=== PATIENT | female | born 1965 | race African-American/Black ===

== ENCOUNTER 2022-02-04 10:43 | Observation (INO) ==
[2022-02-04 11:21] LABS: Basophils % 0.8 % (0.0-0.8); Eosinophils # 0.2 10*3/uL (0.0-0.87); Eosinophils % 3.3 % (0.00-10.9); Hematocrit 38.9 VOL% (35.7-47.0); Hemoglobin 13.1 GM/DL (12.0-16.0); Immature Granulocytes % 0.4 %; Immature Granulocytes Absolute 0.02 #; Lymphocytes # 0.6 10*3/uL (1.4-4.0); Mean Corpuscular HGB Conc 33.7 GM/DL (32-36); Mean Corpuscular Volume 76.4 FL (87-102); Mean Platelet Volume 12.6 FL (9.6-12.0); Monocytes % 6.3 % (1.7-12.7); Neutrophils % 77.2 % (38.7-73.9); Platelet Count 187 T/CUMM (130-400); Red Blood Count 5.09 MC/CUMM (3.8-5.5); Red Cell Distribution Width 13.5 % (9.3-17.3); White Blood Count 4.9 T/CUMM (4-12)
[2022-02-04 11:39] LABS: Albumin 3.4 G/DL (3.4-5.0); Bilirubin,Total 1.1 MG/DL (0.20-1.00); Calcium 8.7 MG/DL (8.5-10.1); Osmolality,Calculated 280.8 MOS/KG (273-304); Potassium 4.3 MMOL/L (3.5-5.1); Total Protein 7.2 G/DL (6.4-8.2)
[2022-02-04] MEDS ORDERED: NITROGLYCERIN SL 0.4 MG TABLET SL PRN (11:45)
[2022-02-04] MEDS ORDERED: ASPIRIN 325 MG TABLET PO STA (11:45)
[2022-02-04] MEDS ORDERED: ENOXAPARIN 30 MG/0.3 ML SYRINGE SUBCUT STA (11:49)
[2022-02-04] MEDS ORDERED: hydrALAZINE 20 MG/1 ML VIAL IV STA (12:12)
[2022-02-04] MEDS ORDERED: MORPHINE 2 MG/1 ML SYRINGE IV PRN (12:13)
[2022-02-04] MEDS ORDERED: GLUCAGON 1 MG VIAL IM PRN (12:13)
[2022-02-04] MEDS ORDERED: ONDANSETRON 4 MG/2 ML VIAL IV PRN (12:13)
[2022-02-04] MEDS ORDERED: DEXTROSE 10% 250 ML BAG IV PRN (12:13)
[2022-02-04] MEDS ORDERED: ENOXAPARIN 120 MG/0.8 ML SYRINGE SUBCUT ONE (12:28)
[2022-02-04] MEDS ORDERED: hydrALAZINE 20 MG/1 ML VIAL IV PRN (12:37)
[2022-02-04] MEDS ORDERED: METOPROLOL TARTRATE 5 MG/5 ML VIAL IV STA (13:48)
[2022-02-04] MEDS ORDERED: NITROGLYCERIN 2% OINT 1 INCH/GM PACK TOP STA (13:50)
[2022-02-04] MEDS: lisinopriL 10 MG TABLET PO SCH (14:03)
[2022-02-04 14:38] LABS: Hepatitis B Core IgM Quant 0.15 Index; Hepatitis B Surface Ag Quant 0.16 Index; Hepatitis B Surface Ag Result Non-Reactive (NonReactive); Hepatitis C Virus Ab Quant 0.08 Index; Hepatitis C Virus Ab Result Non-Reactive (NonReactive)
[2022-02-04 14:42] LABS: PT Patient Result 10.8 SECS (10.5-12.0)
[2022-02-04 14:43] LABS: Bacteria,Urine Occasional /HPF (Few); Mucus,Urine Occasional /LPF (Occasional); RBC,Urine <1 /HPF (0-4); Squamous Epithelial Cell,Urine Occasional /HPF (0-10)
[2022-02-04 14:45] LABS: Glucose,Urine (UA) 250 mg/dL (Negative); Protein,Urine Negative (Negative); Urine Appearance Clear (Clear); Urine Color Light Yellow (Yellow); Urine Specific Gravity >= 1.030 (1.001-1.035)
[2022-02-04 14:46] LABS: Bilirubin,Urine Negative (Negative); Blood, Urine Negative (Negative); Ketones,Urine Negative (Negative); Nitrite,Urine Negative (Negative); Urine Urobilinogen < 2.0 eU/dL (<2.0)
[2022-02-04 14:57] LABS: CKMB % 7.1 %
[2022-02-04 15:00] LABS: Barbiturates Screen,Urine Negative (Negative); Benzodiazepines Screen,Urine Negative (Negative); Cannabinoid Screen,Urine Negative (Negative); Opiate Screen,Urine Negative (Negative); Phencyclidine Screen,Urine Negative (Negative)
[2022-02-04] MEDS ORDERED: MORPHINE 4 MG/1 ML VIAL ONE (15:42)
[2022-02-04] MEDS ORDERED: POTASSIUM CHLORIDE RIDER 10 MEQ/100 ML PREMIX IV PRN (17:04)
[2022-02-04] MEDS ORDERED: DIAZEPAM 5 MG TABLET PO ONE (17:04)
[2022-02-04] MEDS ORDERED: MAGNESIUM SULF RIDER 2 GM/50 ML PREMIX IV PRN (17:04)
[2022-02-04] MEDS: SODIUM CHLORIDE 0.9% 1,000 ML IV SCH (17:49)
[2022-02-04] MEDS: INSULIN REGULAR 100 UNIT/ML SUBCUT SCH (17:56)
[2022-02-04] MEDS ORDERED: diphenhydrAMINE CAP 25 MG CAPSULE PO ONE (18:00)
[2022-02-04] MEDS ORDERED: LIDOCAINE 1% 20 ML VIAL ONE (18:32)
[2022-02-04] MEDS ORDERED: VERAPAMIL 5 MG/2 ML VIAL ONE (18:32)
[2022-02-04] MEDS ORDERED: fentaNYL 100 MCG/2 ML VIAL ONE (18:32)
[2022-02-04] MEDS ORDERED: MIDAZOLAM 2 MG/2 ML VIAL ONE (18:32)
[2022-02-04] MEDS ORDERED: NITROGLYCERIN DRIP 50 MG/250 ML BOTTLE IV ONE (18:32)
[2022-02-04] MEDS: carvediloL 6.25 MG TABLET PO SCH (20:53)
[2022-02-04] MEDS ORDERED: carvediloL 3.125 MG TABLET PO SCH ×3 (21:00)
[2022-02-04] MEDS ORDERED: ROSUVASTATIN 20 MG TABLET PO SCH (21:00)
[2022-02-04] MEDS ORDERED: cloNIDine 0.1 MG TABLET PO SCH (21:00)
[2022-02-04] MEDS ORDERED: ACETAMINOPHEN 325 MG TABLET PO PRN (21:06)
[2022-02-05] MEDS: INSULIN REGULAR 100 UNIT/ML SUBCUT SCH ×2 (00:16→08:53)
[2022-02-05] MEDS: SODIUM CHLORIDE 0.9% 1,000 ML IV SCH ×2 (02:00→10:39)
[2022-02-05 05:17] LABS: Calcium 8.5 MG/DL (8.5-10.1); Osmolality,Calculated 278.7 MOS/KG (273-304); Potassium 3.8 MMOL/L (3.5-5.1)
[2022-02-05 05:27] LABS: Albumin 2.7 G/DL (3.4-5.0); Bilirubin,Total 0.7 MG/DL (0.20-1.00); Calcium 8.5 MG/DL (8.5-10.1); Osmolality,Calculated 279.7 MOS/KG (273-304); Potassium 3.9 MMOL/L (3.5-5.1); Total Protein 6.3 G/DL (6.4-8.2)
[2022-02-05 05:28] LABS: High Sensitive Troponin I* 13039.3 ng/L (0-54)
[2022-02-05 07:35] LABS: CKMB % 5.1 %; High Sensitive Troponin I* 7912.3 ng/L (0-54)
[2022-02-05 08:15] LABS: Basophils % 0.7 % (0.0-0.8); Eosinophils # 0.2 10*3/uL (0.0-0.87); Eosinophils % 3.9 % (0.00-10.9); Hematocrit 35.8 VOL% (35.7-47.0); Immature Granulocytes % 0.2 %; Immature Granulocytes Absolute 0.01 #; Lymphocytes # 0.8 10*3/uL (1.4-4.0); Lymphocytes % 19.4 % (21.3-54.2); Mean Corpuscular HGB Conc 33.5 GM/DL (32-36); Mean Corpuscular Volume 76.3 FL (87-102); Mean Platelet Volume 12.8 FL (9.6-12.0); Monocytes % 13.2 % (1.7-12.7); Neutrophils % 62.6 % (38.7-73.9); Platelet Count 180 T/CUMM (130-400); Red Blood Count 4.69 MC/CUMM (3.8-5.5); Red Cell Distribution Width 13.9 % (9.3-17.3); White Blood Count 4.3 T/CUMM (4-12)
[2022-02-05 08:25] VITALS: BP 115/81
[2022-02-05] MEDS ORDERED: MAGNESIUM HYDROXIDE SUSP 30 ML UDCUP PO ONE (08:30)
[2022-02-05 08:42] LABS: Risk Ratio 4.05; VLDL Cholesterol 25.8 MG/DL
[2022-02-05] MEDS: carvediloL 6.25 MG TABLET PO SCH (08:53)
[2022-02-05] MEDS: lisinopriL 10 MG TABLET PO SCH (08:53)
[2022-02-05] MEDS ORDERED: ENOXAPARIN 40 MG/0.4 ML SYRINGE SUBCUT SCH (09:00)
[2022-02-05] MEDS ORDERED: FUROSEMIDE 20 MG TABLET PO SCH (09:00)
[2022-02-05] MEDS ORDERED: FERROUS SULFATE 325 MG TABLET PO SCH (09:00)
[2022-02-05] MEDS ORDERED: ASPIRIN EC 325 MG TABLET PO SCH (09:00)
[2022-02-05] MEDS ORDERED: PANTOPRAZOLE 40 MG TABLET PO SCH (09:00)
[2022-02-05] MEDS ORDERED: ASPIRIN 325 MG TABLET PO SCH (09:00)
[2022-02-05] MEDS ORDERED: ASPIRIN EC 81 MG TABLET PO SCH (09:00)
[2022-02-05] MEDS ORDERED: lisinopriL 10 MG TABLET PO SCH (09:00)
[2022-02-05] MEDS ORDERED: AMITRIPTYLINE 25 MG TABLET PO SCH (21:00)
== END 2022-02-05 12:03 | disposition home or self-care (01) ==
LOC: N.ED 10:43 → N.EDINP 10:43 → SUATTDRO 12:13 → N.EDINP 18:29 → N.TELES 19:28
PROVIDERS: ADMIT Internal Medicine; ATTEND Internal Medicine Geriatric Medicine
PROC: CLCCHCL (ICD-10-PCS; 2022-02-04 18:15)